=== PATIENT | female | born 1985 ===

== ENCOUNTER → 2021-04-07 | Outpatient (CLI) | payer OTHER | END | disposition home or self-care (01) | LOC: PRENATAL 15:20 | PROVIDERS: ATTEND Obstetrics & Gynecology Maternal & Fetal Medicine | DX: O35.0XX1 Maternal care for (suspected) central nervous system malformation in fetus, fetus 1 (principal); O35.3XX1 Maternal care for (suspected) damage to fetus from viral disease in mother, fetus 1; O98.512 Other viral diseases complicating pregnancy, second trimester; Z36.89 Encounter for other specified antenatal screening; Z3A.26 26 weeks gestation of pregnancy ==

== ENCOUNTER 2021-05-27 16:51 | Outpatient (CLI) | payer OTHER ==
[2021-05-27] MEDS ORDERED: PRENATAL TABLE1 EAC1 PO (16:59)
[2021-05-27] MEDS ORDERED: IRON325 MG PO (16:59)
[2021-05-28] MEDS ORDERED: IRON325 MG PO (11:41)
== END 2021-05-28 09:28 | disposition home or self-care (01) ==
LOC: OBS/DEL 16:51
PROVIDERS: ATTEND Obstetrics & Gynecology
DX: O26.893 Other specified pregnancy related conditions, third trimester (principal); N93.0 Postcoital and contact bleeding; O99.013 Anemia complicating pregnancy, third trimester; D64.89 Other specified anemias; Z3A.31 31 weeks gestation of pregnancy

== ENCOUNTER 2021-06-03 02:35 | Emergency (ER) | payer OTHER ==
[~2021-06-03] VITALS: Ht 167.6 cm; Wt 72.6 kg
[~2021-06-03 02:35] MED LIST: IRON325 MG PO; PRENATAL TABLE1 EAC1 PO
[2021-06-03] MEDS ORDERED: NIFEDIPINE20 MG (02:54)
[2021-06-03] MEDS ORDERED: DUI500 (02:55)
== END 2021-06-03 05:31 ==
LOC: ER 02:35
DX: M62.838 Other muscle spasm (principal)

== ENCOUNTER 2021-07-18 08:14 | Inpatient (IN) | payer OTHER ==
[~2021-07-18] VITALS: Ht 167.6 cm; Wt 3.6 kg
[~2021-07-18 08:14] MED LIST changes: +DUI500; +NIFEDIPINE20 MG
== END 2021-07-21 14:28 | disposition home or self-care (01) | DRG 785 ==
LOC: OB/GYN 08:14 → LDR 08:14 → OB/GYN 15:08
PROVIDERS: ADMIT Obstetrics & Gynecology; ATTEND Obstetrics & Gynecology
PROC: 0UB70ZZ Excision of Bilateral Fallopian Tubes, Open Approach (ICD-10-PCS; 2021-07-18)
PROC: 4A1HXFZ Monitoring of Products of Conception, Cardiac Rhythm, External Approach (ICD-10-PCS; 2021-07-18)
PROC: 10D00Z1 Extraction of Products of Conception, Low, Open Approach (ICD-10-PCS; principal; 2021-07-18 12:15)
DX: O34.211 Maternal care for low transverse scar from previous cesarean delivery (principal); Z30.2 Encounter for sterilization; Z37.0 Single live birth; Z3A.39 39 weeks gestation of pregnancy